=== PATIENT | male | born 1995 | race Caucasian/White ===

== ENCOUNTER 2024-02-28 16:47 | Emergency (ER) | payer OTHER | END 2024-02-28 18:15 | disposition home or self-care (01) | LOC: ERS 16:47 | DX: F14.10 Cocaine abuse, uncomplicated (principal); F12.10 Cannabis abuse, uncomplicated; F15.10 Other stimulant abuse, uncomplicated; F11.10 Opioid abuse, uncomplicated; F17.210 Nicotine dependence, cigarettes, uncomplicated; Z55.6 Problems related to health literacy; Z59.00 Homelessness unspecified | CPT/HCPCS: 93005; 99283 ==